=== PATIENT | male | born 1955 | race Two or more races ===

== ENCOUNTER 2017-03-12 12:03 | Emergency (ER) | payer OTHER ==
[~2017-03-12] VITALS: Ht 165.1 cm; Wt 131.5 kg
[2017-03-12 16:09] LABS: Basophils # (auto) 0 uL; Basophils % (auto) 0.1 % (0.0-2.0); Eosinophils # (auto) 0 uL; Eosinophils % (auto) 0.3 % (0.0-7.0); Hematocrit 45.7 % (41.0-53.0); Hemoglobin 15.3 g/dL (13.5-17.5); Lymphocytes # (auto) 2.7 uL; Lymphocytes % (auto) 17.3 % (10.0-50.0); Mean Corpuscular Hemoglobin 27.6 pg (28.0-32.0); Mean Corpuscular Hgb Conc. 33.5 g/dL (32.0-36.0); Mean Corpuscular Volume 82.5 fL (80.0-100.0); Mean Platelet Volume 8.8 fL (7.4-10.4); Monocytes # (auto) 0.9 uL; Neutrophils # (auto) 11.8 uL; Neutrophils % (auto) 76.3 % (37.0-80.0); Platelet Count (auto) 304 10^3/uL (140-450); Red Cell Distribution Width 15.4 % (11.6-16.0); White Blood Cell 15.5 10^3/uL (4.4-10.8)
[2017-03-12 16:15] LABS: Albumin 4.2 g/dL (3.4-5.0); BUN/Creatinine Ratio 11.7; Calcium 9.3 mg/dL (8.5-10.1); Potassium 4.4 mmol/L (3.5-5.1)
[2017-03-12 16:17] LABS: Bilirubin, Total 0.5 mg/dL (0.2-1.0); Total Protein 7.8 g/dL (6.4-8.2)
[2017-03-12 22:45] VITALS: BP 136/91
== END 2017-03-12 22:45 | disposition home or self-care (01) ==
LOC: ER 12:09
DX: R33.9 Retention of urine, unspecified (principal); I10 Essential (primary) hypertension; F17.210 Nicotine dependence, cigarettes, uncomplicated
CPT/HCPCS: 36415; 51702; 80053; 82962; 85025

== ENCOUNTER 2021-10-28 14:36 | Emergency (ER) | payer OTHER ==
[~2021-10-28] VITALS: Ht 165.1 cm; Wt 93.0 kg
[2021-10-28] MEDS ORDERED: ALBUAER3 IN (19:19)
[2021-10-28] MEDS ORDERED: AZITTAB PO (19:19)
[2021-10-28 19:30] VITALS: BP 143/55
== END 2021-10-28 21:27 | disposition home or self-care (01) ==
LOC: ER 14:36
DX: U07.1 COVID-19 (principal); E66.9 Obesity, unspecified; F17.210 Nicotine dependence, cigarettes, uncomplicated; I10 Essential (primary) hypertension; Z68.34 Body mass index [BMI] 34.0-34.9, adult
CPT/HCPCS: 36415; 71045; 87426